=== PATIENT | female | born 1960 | race American Indian/Alaskan Native ===

== ENCOUNTER 2017-05-03 09:58 | Outpatient (CLI) | payer OTHER ==
--- NOTE | 2017-05-03 12:42 | Mammography Report ---
Bilateral mammogram: Compared to 03/10/16. CAD study utilized. Findings: Predominance and adipose tissue bilaterally. Benign density right breast. New microcalcifications left breast inner posterior. Normal axilla. Impression: New microcalcifications left breast. Recommend spot magnification views. BI-RADS CATEGORY: 0 = Needs additional imaging evaluation ACR BI-RADS MAMMOGRAPHIC CODES: 0 = Needs additional imaging evaluation; 1 = Negative; 2 = Benign; 3 = Probably benign; 4 = Suspicious; 5 = Malignant; 6 = Known biopsy-proven malignancy COMMENT: 1. Dense breast tissue, i.e., adenosis, fibrocystic changes, etc., may obscure an underlying neoplasm. 2. Approximately 10% of cancers are not detected with mammography. 3. A negative mammography report should not delay biopsy if a clinically suspicious mass is present. COMMENT: Patient follow-up letters are generated in [employer].
== END 2017-05-03 09:59 | disposition home or self-care (01) ==
LOC: SPVWC 09:58
PROVIDERS: ATTEND Internal Medicine
DX: Z12.31 Encounter for screening mammogram for malignant neoplasm of breast (principal)
CPT/HCPCS: 77067; G0202

== ENCOUNTER 2017-06-08 13:32 | Outpatient (CLI) | payer OTHER ==
--- NOTE | 2017-06-08 14:14 | Mammography Report ---
Diagnostic left mammogram. History: Recall for calcifications. Findings: Spot compression magnification images demonstrate several rounded calcifications in the extreme posterior location, probably within the skin. These have benign radiographic features. Impression: Benign microcalcifications. BI-RADS code: 2. Recommendation: Annual screening.
== END 2017-06-08 13:33 | disposition home or self-care (01) ==
LOC: SPVWC 13:32
PROVIDERS: ATTEND Internal Medicine
DX: R92.1 Mammographic calcification found on diagnostic imaging of breast (principal); R92.8 Other abnormal and inconclusive findings on diagnostic imaging of breast
CPT/HCPCS: G0206-LT

== ENCOUNTER 2018-06-09 10:01 | Outpatient (CLI) | payer OTHER ==
--- NOTE | 2018-06-10 08:39 | Mammography Report ---
BILATERAL DIGITAL SCREENING MAMMOGRAM with CAD: 06/09/18 10:01:00 CLINICAL: Routine screening. COMPARISON:05/03/17 FINDINGS: The breasts are almost entirely fatty.Stable large keloid of the upper inner left breast. No mass, architectural distortion or suspicious calcifications. IMPRESSION: No mammographic evidence of malignancy. BI-RADS CATEGORY: 2 -- Benign RECOMMENDATION: Routine mammographic screening in one year. COMMENT: Patient follow-up letters are generated by our [employer] application.
== END 2018-06-09 10:02 | disposition home or self-care (01) ==
LOC: SPVWC 10:01
PROVIDERS: ATTEND Internal Medicine
DX: Z12.31 Encounter for screening mammogram for malignant neoplasm of breast (principal)
CPT/HCPCS: 77067

== ENCOUNTER 2019-07-25 08:52 | Outpatient (CLI) | payer OTHER ==
--- NOTE | 2019-07-25 11:09 | Mammography Report ---
BONE DEXA CLINICAL: Postmenopausal. TECHNIQUE: 2 site bone DEXA performed on an Hologic scanner. FINDINGS: The average BMD of the lumbar spine L1-L4 is 0.967g/cm squared with a T score of -1.7 and a Z score o f -0.2. The average total BMD of the left hip is 1.015 g/cm squared with a T score of -0.1and a Z score of +0 .6. IMPRESSION: 1. WHO classification: Osteopenia with increased fracture risk based on spine measurements. 2. WHO classification Normal with average fracture risk based on left hip measurements. RECOMMENDATION: Clinical correlation and routine screening. Definitions: BMD equal bone mineral density T score = BMD related to peak bone mass of young adult (Routt expressed an standard deviation) Z score = age-matched BMD expressed in SD World health organization (WHO) diagnostic criteria Normal T score greater than equal to 1 standard deviation Osteopenia T score between -1 and -2.4 standard deviation Osteoporosis T score -2.5 standard deviation or below. Note: BMD is not the only risk factor for fracture; also consider factors such as the patient's age, risk of falling, previous osteoporotic fracture, family history of osteoporotic fractures, current sm oker and low body weight. Z scores are not calculated if greater than 80 years of age. Signer Name: Nitish Buenrostro MD Signed: 07/25/2019 11:05 AM Workstation Name: [id number]
== END 2019-07-25 08:53 | disposition home or self-care (01) ==
LOC: SPVWC 08:52
PROVIDERS: ATTEND Internal Medicine
DX: Z13.820 Encounter for screening for osteoporosis (principal); M85.88 Other specified disorders of bone density and structure, other site; M81.0 Age-related osteoporosis without current pathological fracture
CPT/HCPCS: 77080

== ENCOUNTER 2019-09-01 14:10 | Outpatient (CLI) | payer OTHER ==
--- NOTE | 2019-09-05 08:31 | Mammography Report ---
DIGITAL SCREENING MAMMOGRAM WITHOUT CAD, 09/01/2019 INDICATION: Routine screening mammography. TECHNIQUE: Digital bilateral 2D mammography was obtained in the craniocaudal and mediolateral obliq ue projections. For technical reasons, Computer-Aided Detection analysis was not utilized. COMPARISON: 06/09/2018 and 03/10/2016 FINDINGS: Breast Density: The breasts are almost entirely fatty. There is no evidence of dominant mass, suspicious calcifications or architectural distortion in eithe r breast. A large keloid of the upper inner left breast. IMPRESSION: No mammographic evidence of malignancy. Follow up recommendation: Routine yearly BI-RADS Category 2: Benign. A "normal" or negative report should not discourage follow up or biopsy of a clinically significant f inding. A written summary of these findings will be mailed to the patient. The patient will be entered into a mammography reporting system which will generate a reminder letter for the patient's next appointmen t at the appropriate interval. The [employer] recommends yearly mammograms starting at age 40 and continuing as l shantel as a woman is in good health. Breast MRI is recommended for women with an approximate 20-25% or greater lifetime risk of breast cancer, including women with a strong family history of breast or [place] cancer or who have been treated for Hodgkin's disease. Signer Name: Nitish Buenrostro MD Signed: 09/05/2019 8:26 AM Workstation Name: [id number]
== END 2019-09-01 14:11 | disposition home or self-care (01) ==
LOC: SPVWC 14:10
PROVIDERS: ATTEND Internal Medicine
DX: Z12.31 Encounter for screening mammogram for malignant neoplasm of breast (principal)
CPT/HCPCS: 77067

== ENCOUNTER 2020-09-05 09:34 | Outpatient (CLI) | payer OTHER ==
--- NOTE | 2020-09-05 10:52 | Mammography Report ---
DIGITAL SCREENING MAMMOGRAM WITH CAD, 09/05/2020 INDICATION: Routine screening mammography. SCREENING MAMMOGRAM TECHNIQUE: Digital bilateral 2D mammography was obtained in the craniocaudal and mediolateral obliq ue projections. This examination was interpreted with the benefit of Computer-Aided Detection analysi s. COMPARISON: 09/01/2019 FINDINGS: Breast Density: The breasts are almost entirely fatty. There is no evidence of dominant mass, suspicious calcifications or architectural distortion in eithe r breast. Left keloids are again seen. IMPRESSION: No evidence of malignancy Follow up recommendation: Routine yearly BI-RADS Category 2: Benign. A "normal" or negative report should not discourage follow up or biopsy of a clinically significant f inding. A written summary of these findings will be mailed to the patient. The patient will be entered into a mammography reporting system which will generate a reminder letter for the patient's next appointmen t at the appropriate interval. The [employer] recommends yearly mammograms starting at age 40 and continuing as l shantel as a woman is in good health. Breast MRI is recommended for women with an approximate 20-25% or greater lifetime risk of breast cancer, including women with a strong family history of breast or [place] cancer or who have been treated for Hodgkin's disease. Signer Name: Bill Calderón MD Signed: 09/05/2020 10:47 AM Workstation Name: [id number]
== END 2020-09-05 09:35 | disposition home or self-care (01) ==
LOC: SPVWC 09:34
PROVIDERS: ATTEND Internal Medicine
DX: Z12.31 Encounter for screening mammogram for malignant neoplasm of breast (principal)
CPT/HCPCS: 77067

== ENCOUNTER 2021-09-08 14:07 | Outpatient (CLI) | payer OTHER ==
--- NOTE | 2021-09-08 17:56 | Mammography Report ---
DIGITAL SCREENING MAMMOGRAM WITH CAD, 09/08/2021 CLINICAL INFORMATION / INDICATION: Routine screening mammography. SCREENING MAMMO Z12.31 TECHNIQUE: Digital bilateral 2D mammography was obtained in the craniocaudal and mediolateral obliqu e projections. This examination was interpreted with the benefit of Computer-Aided Detection analysis . COMPARISON: 03/10/2016 through 09/05/2020. FINDINGS: Breast Density: The breasts are almost entirely fatty. No dominant mass, suspicious calcifications, or architectural distortion in either breast. Left breast scarring and keloid formation are again identified. A benign intramammary lymph node in t he right upper outer quadrant is stable. IMPRESSION: No mammographic evidence of malignancy. Follow up recommendation: Routine yearly BI-RADS Category 2: Benign. A "normal" or negative report should not discourage follow up or biopsy of a clinically significant f inding. A written summary of these findings will be mailed to the patient. The patient will be entered into a mammography reporting system which will generate a reminder letter for the patient's next appointmen t at the appropriate interval. The [employer] recommends yearly mammograms starting at age 40 and continuing as l shantel as a woman is in good health. Breast MRI is recommended for women with an approximate 20-25% or greater lifetime risk of breast cancer, including women with a strong family history of breast or [place] cancer or who have been treated for Hodgkin's disease. Signer Name: Gregg Brown MD Signed: 09/08/2021 5:52 PM Workstation Name: [id number]
== END 2021-09-08 14:08 | disposition home or self-care (01) ==
LOC: SPVWC 14:07
PROVIDERS: ATTEND Internal Medicine
DX: Z12.31 Encounter for screening mammogram for malignant neoplasm of breast (principal); N64.89 Other specified disorders of breast
CPT/HCPCS: 77067